=== PATIENT | male | born 1955 | race Caucasian/White ===

== ENCOUNTER 2021-04-28 23:21 | Emergency (ER) | payer MEDICARE, OTHER ==
[~2021-04-28 23:21] MED LIST: NORCO 5-325 TA1 EACH PO
[2021-04-29 00:19] LABS: HEMOGLOBIN 14.8 gm/dl (14.0-17.5); RED BLOOD COUNT 4.65 M/UL (4.20-5.50); WHITE BLOOD COUNT 8.4 K/UL (4.5-11.0)
[2021-04-29 00:42] LABS: BUN/CREATININE RATIO 15 (0-10)
[2021-04-29] MEDS ORDERED: CEPHALEXIN500 MG PO (06:26)
== END 2021-04-29 06:32 | disposition home or self-care (01) ==
LOC: ER1 23:21
PROVIDERS: Physician Assistant
DX: S92.421A Displaced fracture of distal phalanx of right great toe, initial encounter for closed fracture (principal); S91.111A Laceration without foreign body of right great toe without damage to nail, initial encounter; I10 Essential (primary) hypertension; Z85.3 Personal history of malignant neoplasm of breast; F17.210 Nicotine dependence, cigarettes, uncomplicated; W45.8XXA Other foreign body or object entering through skin, initial encounter; X58.XXXA Exposure to other specified factors, initial encounter; Z23 Encounter for immunization
CPT/HCPCS: 12002; 71045; 73630; 80053; 85025; 90471; 90715; 96374; 99283; J0690

== ENCOUNTER 2022-06-03 14:11 | Emergency (ER) | payer MEDICARE, OTHER ==
[~2022-06-03 14:11] MED LIST changes: +CEPHALEXIN500 MG PO
[2022-06-03 14:51] LABS: HEMOGLOBIN 13.2 gm/dl (14.0-17.5); RED BLOOD COUNT 4.19 M/UL (4.20-5.50); WHITE BLOOD COUNT 8.5 K/UL (4.5-11.0)
[2022-06-03 15:20] LABS: BUN/CREATININE RATIO 20 (0-10)
[2022-06-03] MEDS ORDERED: LASIX20 MG PO (16:22)
== END 2022-06-03 16:50 | disposition home or self-care (01) ==
LOC: ER1 14:11
PROVIDERS: Family Medicine
DX: I11.0 Hypertensive heart disease with heart failure (principal); I50.9 Heart failure, unspecified; E78.5 Hyperlipidemia, unspecified; J44.9 Chronic obstructive pulmonary disease, unspecified; F17.210 Nicotine dependence, cigarettes, uncomplicated; Z88.1 Allergy status to other antibiotic agents
CPT/HCPCS: 71046; 80053; 82550; 82553; 83880; 84484; 85025; 93005; 94664; 94760; 96374; 99285; J1940